=== PATIENT | female | born 1950 | race Caucasian/White ===

== ENCOUNTER 2017-01-01 12:13 | Inpatient (IN) | payer MEDICARE, OTHER ==
--- NOTE | ~2017-01-01 | DS ---
Discharge Summary [facility] [address] [place]. [address] NAME: GEOFFREY KIM : 50 STATUS : DIS IN PAT#: [id number] AGE: 66 ADM/REG DATE : 01/01/17 MR#: [id number] REPORT SERV DATE: 01/04/17 DICTATED BY: BLAKE MOORE DATE: 01/04/17 REPORT STATUS : Draft TRANSCRIBED BY: MODL DATE: 01/04/17 ADMISSION DATE: 01/01/2017 DISCHARGE DATE: 01/04/2017 DISPOSITION: Discharged to home with home health nurse, namely Vivek, three times a week for handling TPN and also for handling J-tube and changing dressings in the J-tube area. CONDITION ON DISCHARGE: Stable. CONSULTS: Consults obtained during hospitalization include Neurology consult. DIAGNOSES ON DISCHARGE: Right-sided weakness secondary to cerebrovascular accident, status post tPA - the patient's weakness completely resolved once she received tPA. The patient has been watched in the ICU for 24 hours post tPA and has been doing great. The patient now has no residual weakness on the right side after she received tPA. Other diagnoses that are chronic include the followin. Chronic moderate malnutrition from dysphagia and gastroparesis. 2. Dysphagia from several reasons:. a. Scleroderma causing esophageal web, eosinophilic esophagitis, history of oral cancer that has been treated. All these have contributed to her dysphagia. 3. The patient has a J-tube placed chronically, which she uses also for supplemental feeding along with her TPN. 4. Chronic moderate malnutrition as mentioned above. 5. Hypertension. 6. Recent cerebrovascular accident, which left her with no residual deficits because of the tPA as mentioned above. Other diagnoses that are stable include: 1. Hypothyroidism, which is stable. 2. Several dilatations of the esophagus and the patient states that she has had this done several times definitely at least 14 times. 3. History of aspiration pneumonia at least five times in the last two years according to the patient and her . 4. Chronic anemia of chronic disease for which she receives frequent Neupogen shots by Dr. Weller. 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 Initially, when the patient came in (please see H and P for much more detailed H and P). Anyway, she came in for right-sided weakness and some confusion and speech disturbance. She was started on tPA immediately for CVA and the patient underwent 24-hour observation in the unit. The patient did really well and subsequently was transferred to the regular floor. The patient has been doing well here, and after being stabilized and given supportive and symptomatic care for the last few days, she is being discharged home Discharge Summary [place] [id number] [facility] [place]. [address] NAME: GEOFFREY KIM : 50 STATUS : DIS IN PAT#: [id number] AGE: 66 ADM/REG DATE : 01/01/17 MR#: [id number] REPORT SERV DATE: 01/04/17 DICTATED BY: BLAKE MOORE DATE: 01/04/17 REPORT STATUS : Draft TRANSCRIBED BY: LISA DATE: 01/04/17 with home health as before. The patient is ambulatory now, but she requires minimal assistance. There are no deficits at this time. On the day of discharge, I have the following medications for her. The patient will be going home on: 1. Aspirin 81 mg via J-tube once a day. 2. Lipitor 40 mg via J-tube once a day. 3. She will continue her erythromycin or Laron-Tab 250 mg via J-tube once a day. 4. Phenergan 25 mg via PEG at bedtime. 5. Vitamin B12. 6. Pulmicort Respules. 7. Zofran 8 mg via PEG four times a day p.r.n. 8. Amlodipine 5 mg once a day via PEG tube. 9. Neurontin 300 mg via PEG tube at bedtime. 10.Aranesp 200 mcg IV every two weeks per Dr. Weller. The patient has been advised to follow up with her PCP, Dr. Elvia Mendoza, within the next week or two and keep her appointment with GI as scheduled and also with Neurology as scheduled. I do have the following labs on her upon discharge. The most recent electrolyte profile which is on 01/04/2017 shows sodium 138, potassium 4.3, BUN 29, creatinine 1.1, magnesium is 2.2, and phosphorus is 3.6. Her most recent CBC that was done on 01/01/2017 shows WBC count of 2.9, hemoglobin 9.7, hematocrit 29.7, and platelet count of 152. The patient has had the following radiological exams: A CT scan of the brain per stroke protocol showed a negative noncontrast CT upon admission. The patient then had a CTA of the head and neck that showed essentially negative CT angiogram also. The patient then also had an MRI of the brain without contrast that showed manganese deposition in both the basal ganglia. This is probably secondary to manganese supplement, which she is getting in her tPA. Her lipid profile showed total cholesterol of 152, HDL of 73, and LDL of 63 which is why the patient is being started on a lower dose of Lipitor 40 mg once a day via the PEG tube right now. Troponin I was negative. Cardiac enzymes were negative. TSH was 4.5 and free T4 0.9. Her hemoglobin A1c came back at 4.5, reflecting that the patient does not have any diabetes at this time. Hence, the patient is being sent home with home health in stable condition. I have spent about 40 minutes in coordinating discharge care of this patient including face- to-face encounter. RRA/MODL Discharge Summary [address] [address] NAME: GEOFFREY KIM : 50 STATUS : DIS IN PAT#: [id number] AGE: 66 ADM/REG DATE : 01/01/17 MR#: [id number] REPORT SERV DATE: 01/04/17 DICTATED BY: BLAKE MOORE DATE: 01/04/17 REPORT STATUS : Draft TRANSCRIBED BY: LISA DATE: 01/04/17 Blake Moore M.D. / [id number] CC: Puja Ruiz M.D.
--- NOTE | ~2017-01-01 | EHP ---
ER History and Physical [address] [address] NAME: GEOFFREY KIM : 50 STATUS : DIS IN PAT#: [id number] AGE: 66 ADM/REG DATE : 01/01/17 MR#: [id number] REPORT SERV DATE: 01/10/17 DICTATED BY: JAYANT HERRERA DATE: 01/10/17 REPORT STATUS : Draft TRANSCRIBED BY: MODL DATE: 01/10/17 CHIEF COMPLAINT: Stroke-like symptoms. HISTORY OF PRESENT ILLNESS: The patient is a 66-year-old white female with a history of throat cancer presenting with acute onset of stroke-like symptoms, was last normal one hour prior. Patient was sent back to the emergency room and I saw the patient immediately on arrival and realized the patient did have an acute onset of CVA. Stroke alert was called. Dr. Curtis called and we discussed this case. The patient was sent to the CT scan, which showed normal scan and tPA was done by Dr. Curtis down here in the ER. Within 30-45 minutes the patient had improvement of symptoms. Plans were made for ICU admission and patient's clinical situation gradually improved while she was in the ER. Please see paper chart for history and physical details. UZMA/LISA Jayant Herrera DO / [id number] CC: Puja Ruiz M.D.
--- NOTE | ~2017-01-01 | HP ---
History And Physical [place] [address] [id number] [facility] [place]. [address] NAME: GEOFFREY KIM : 50 STATUS : REG ER PAT#: [id number] AGE: 66 ADM/REG DATE : 01/01/17 MR#: [id number] REPORT SERV DATE: 01/01/17 DICTATED BY: ALONSO CASTELLANOS DATE: 01/01/17 REPORT STATUS : Draft TRANSCRIBED BY: MODL DATE: 01/01/17 DATE OF ADMISSION: 01/01/2017 HISTORY OF PRESENT ILLNESS: This is a 66-year-old patient Neurology, Dr. White after the patient presented earlier today with right facial weakness and right upper arm weakness and was thought to be a suitable candidate for tPA for CVA. The patient has received the tPA and currently is in the ER waiting room placement and is doing well. She is alert and awake, in no distress. So, we are asked to admit her to the intensive care unit for overnight observation as per protocol. The patient has had no syncope, shortness of breath, productive cough, or fever. She has had no history of seizures or previous strokes. It is also reported that she had difficulty seeing out of her right eye, which then went on to progress to numbness of her right face, all of the symptoms are now resolved. ALLERGIES: MORPHINE, CODEINE, DILAUDID, AND LEVOFLOXACIN. HOME MEDICATIONS: Include; Norvasc 5 mg p.o. daily, Pulmicort Respules at bedtime, cyanocobalamin 1000 mcg IM q.30 days, Aranesp 200 mcg IV q.14 days, erythromycin 250 mg via the PEG daily, gabapentin 300 mg at bedtime, Zofran 8 mg via the PEG 4 times a day p.r.n., and promethazine 25 mg at bedtime. PAST MEDICAL HISTORY: Significant for: 1. History of oral cancer, squamous cell carcinoma of the tongue, diagnosed in 2007, followed by Dr. Shane Charles and Dr. Mich Weller, considered in remission. The patient is status post 14 rounds of chemotherapy and 35 radiation treatments. 2. Hypertension. 3. Hypothyroidism. 4. Scleroderma. 5. Esophageal dilatation followed by Dr. Araujo. 6. Eosinophilic esophagitis. 7. Migraine headaches. 8. Urinary tract infection. 9. Gastroesophageal reflux disorder with severe dysphagia and aspiration. 10.Aspiration pneumonia. 11.Gastroparesis. 12.Peptic ulcer disease. 13.Anemia with frequent Epogen shots followed by Dr. Weller. 14.Colonic polyps. PAST SURGICAL HISTORY: Significant for: 1. Hysterectomy. 2. Cholecystectomy. 3. Appendectomy. 4. She had a PEG tube and that has been converted to a GJ tube. 5. Abdominoplasty. 6. Thoracic outlet syndrome with 1st rib resection. History And Physical [address] [place]. [address] NAME: GEOFFREY KIM : 50 STATUS : REG ER PAT#: [id number] AGE: 66 ADM/REG DATE : 01/01/17 MR#: [id number] REPORT SERV DATE: 01/01/17 DICTATED BY: ALONSO CASTELLANOS DATE: 01/01/17 REPORT STATUS : Draft TRANSCRIBED BY: LISA DATE: 01/01/17 7. Previous Port-A-Cath placement. 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 She has one son. She has no history of smoking or alcohol abuse. FAMILY HISTORY: Significant for lung cancer and heart disease and there are several family members with CVA. REVIEW OF SYSTEMS: The patient has complaints of constant nausea, often times associated with diarrhea, mostly related to her difficulty with gastroparesis and dysphagia. She denies any chest pain. Otherwise, the 10-point review of systems was done and is as per history of present illness. PHYSICAL EXAMINATION: GENERAL: The patient is alert and awake. She is in no distress. VITAL SIGNS: Her blood pressure is 165/73 and heart rate is 94. She is on room air, saturating greater than 96%. Respiratory rate is about 12-14 breaths per minute. SKIN: Pale, but warm and dry. HEENT: The head is atraumatic and normocephalic. Pupils are equal, but sluggish. Sclerae are anicteric. Conjunctivae are pale. Nasal mucosa within normal limits. Oral mucosa is moist. Tongue is deviated slightly to the right. NECK: Supple without JVD, lymphadenopathy, or thyromegaly. appears to have a defect secondary to first rib resection on the right. RESPIRATORY: Lungs are diminished at the bases, but no wheezing is heard. CARDIAC: Reveals a regular rate and rhythm with a soft 2/6 systolic murmur heard at the left sternal border. BREASTS: Symmetrical without masses. ABDOMEN: Has a PEG tube in place that is not infected PEG tube that has been transitioned to a GJ tube. There is bilious drainage in the tubing noted. The abdomen is flat and nondistended. Bowel sounds are present. There is no pain to palpation. No organosplenomegaly is appreciated. There is a PICC line in her right arm and a peripheral IV in the left arm. The patient does not have a Conde. Pulses are palpable and symmetrical. The patient has symmetrical pulses throughout. NEUROLOGIC: Cranial nerves II through XII are grossly intact. She does have decreased range of motion in the right arm; however, she does have baseline weakness in that arm as well. She has no significant facial droop. Her speech is within normal limits. Otherwise, she has good motor strength in the left arm and both lower extremities. LABORATORY DATA: CTA of the neck and brain shows grossly normal perfusion. Intracranial CTA is negative. Brachiocephalic CTA, mild atherosclerotic features; however, carotid vertebral and subclavian vessels shows no significant stenosis. Chest x-ray is clear with a right PICC line in place. Stroke protocol, CT of the head is negative, noncontrasted. Sodium is 132, potassium 3.8, chloride 94, BUN 29, creatinine 1.0, and glucose is 114. LFTs are within normal limits with the exception of minimal elevation of the alkaline phosphatase to 231 and AST of 45. Troponin is less than 0.02. White cell count is 2.9, hemoglobin 9.7, hematocrit 29, and platelet count 152,000. PTT and PT/INR within normal limits. ASSESSMENT AND PLAN: This is a 66-year-old patient with previous history of oral cancer, History And Physical [address] [address] NAME: GEOFFREY KIM : 50 STATUS : REG ER PAT#: [id number] AGE: 66 ADM/REG DATE : 01/01/17 MR#: [id number] REPORT SERV DATE: 01/01/17 DICTATED BY: ALONSO CASTELLANOS DATE: 01/01/17 REPORT STATUS : Draft TRANSCRIBED BY: MODWalt DATE: 01/01/17 squamous cell carcinoma, status post XRT and chemotherapy. Long-term problems with recurrent aspiration, requiring PEG tube placement and an eventual GJ tube placement with severe malnutrition, requiring TPN and periodically trickle feeds. She is followed by Dr. Araujo for this. We will continue her TPN as night as she does at home. She is now status post tPA for CVA and will undergo the 24-hour observation in the CCU. Blood pressure and heart rate will be carefully monitored. Echocardiogram is pending. Neurology will be following. The patient currently is in stable condition and continues to improve. PT and OT evaluation have been ordered. /LISA Alonso Castellanos M.D. / [id number]
--- NOTE | ~2017-01-01 | CN ---
Consultation Report [facility] [address] [place]. [address] NAME: GEOFFREY KIM : 50 STATUS : REG ER PAT#: [id number] AGE: 66 ADM/REG DATE : 01/01/17 MR#: [id number] REPORT SERV DATE: 01/01/17 DICTATED BY: DATE: REPORT STATUS : Draft TRANSCRIBED BY: MODL DATE: 01/01/17 NEUROLOGY CONSULTATION DATE OF CONSULTATION: 01/01/2017 REASON FOR CONSULT: Possible acute stroke. HISTORY OF PRESENT ILLNESS: This is a 66-year-old female who presented to [facility] secondary to acute onset of right hemiparesis with the patient reports the symptoms started roughly at 1130 hours. The patient reports to feel a squiggly line across her vision field with the patient to have difficulty seeing out of her right eye and subsequently was noted to have numbness in her right face with the patient also developed right arm weakness and numbness. The patient reports the symptom has been stable since the onset without significant improvement or change. The patient denies similar symptoms in the past and denies previous history of headache. The patient denies any lower extremity involvement, denies any dysarthria. At time of evaluation, the patient does have a history of tongue- based oral cancer with the patient noted to have no recent chemotherapy or radiation therapy. The patient does receive TPN through IV secondary to gastroparesis. The patient denies any recent illness, fever, chills, nausea, vomiting, chest pain, shortness of breath, and does not take any blood thinners at home. The patient currently reports stable symptom. REVIEW OF SYSTEMS: Negative except for those mentioned in the HPI with the patient notedto have past medical history significant for oral cancer with history of radiation, as well as chemotherapy in 2007, history of hypertension with labile blood pressure, hypothyroidism, scotoma, esophageal dilation in the past with the patient noted to have eosinophilic esophagitis, UTI, previous history of migraine headache, gastroesophageal reflux disease, aspiration pneumonia, with the patient currently not taking anything by mouth. The patient does have gastroparesis with the patient noted to have history of PEG tube, but has not currently used secondary to the patient reports gastroparesis with the patient noted to have intolerance to PEG tube feeding and is currently receiving TPN through PICC line. ALLERGIES: THE PATIENT WAS NOTED TO HAVE ALLERGY TO MORPHINE, CODEINE, DILAUDID, AND LEVAQUIN. SOCIAL HISTORY: Denies current tobacco usage, denies alcohol usage, and denies illicit drug usage. FAMILY HISTORY: Significant for lung cancer and heart disease, as well as stroke. The patient denies taking any blood thinners as home medication, again with the review of systems being negative except for those mentioned in the HPI. PHYSICAL EXAMINATION: VITAL SIGNS: The patient's current vital signs demonstrates T-max of 98.4, heart rate of Consultation Report [place] [id number] [place]. [address] NAME: GEOFFREY KIM : 50 STATUS : REG ER PAT#: [id number] AGE: 66 ADM/REG DATE : 01/01/17 MR#: [id number] REPORT SERV DATE: 01/01/17 DICTATED BY: DATE: REPORT STATUS : Draft TRANSCRIBED BY: MODL DATE: 01/01/17 87, respiration of 14. The patient was noted to have blood pressure initially in the systolic blood pressure of 200, subsequently improved to 181 prior to tPA infusion. The patient was given 5 mg of labetalol IV x1 prior to tPA infusion. GENERAL: The patient is well developed, well nourished, in no acute distress. CARDIOVASCULAR: Regular rate and rhythm. No carotid bruits were otherwise auscultated. PULMONARY: Clear to auscultation bilaterally. NEUROLOGICAL: Generally, the patient is alert and oriented to person, place, year, and month and follows simple and two-step commands. Mild dysarthria was noted. No aphasia was seen. Cranial nerves 2 through 12. Pupils equal, round, and reactive to light. Extraocular eye movement was noted to be intact with intact blink to threat response bilaterally. Reports decreased sensation in the right face with decreased sensation in the right arm. The patient was noted to have mild decreased nasolabial fold on the right. Otherwise, was noted to have midline tongue. Normal hearing. The patient demonstrated 5/5 left upper and bilateral lower extremity strength with the patient noted to have 2/5 right upper extremity strength and normal muscle, bulk, and tone with the patient noted to have normal [id number] examination in the left upper extremity. Deep tendon reflex was 1+ throughout. Gait was not evaluated secondary to acute onset of symptoms. LABORATORY STUDY: Currently pending. CT scan of her brain without contrast demonstrated no acute process with CTA demonstrated no significant proximal vessel thrombosis, although official report is currently pending. IMPRESSION: 1. Right hemiparesis. Symptoms onset at 1130 hours. NIH stroke scale currently is 6 with the symptom unchanged. The patient was given 5 mg of labetalol prior to tPA infusion with the tPA infused at 1242 hours. We will admit the patient to Intensive Care Unit for monitoring and perform stroke workup including MRI of her brain concern for possible stroke versus complex migraine. RECOMMENDATIONS: 1. MRI of the brain without contrast. 2. We will admit the patient to the ICU. 3. PT/OT, and Speech Therapy. 4. Echocardiogram, which is pending. 5. Fasting lipid panel and hemoglobin A1c. 6. Atorvastatin 80 mg p.o. at bedtime. 7. Nicardipine drip as needed for blood pressure. [facility]/LISA Guilherme White MD Consultation Report [address] [address] NAME: GEOFFREY KIM : 50 STATUS : REG ER PAT#: [id number] AGE: 66 ADM/REG DATE : 01/01/17 MR#: [id number] REPORT SERV DATE: 01/01/17 DICTATED BY: DATE: REPORT STATUS : Draft TRANSCRIBED BY: MODL DATE: 01/01/17 / [id number]
[~2017-01-01 12:13] MED LIST: ACCUNEB INH; ADRENAL CORTEX; ALEVE220 MG PEG; ARMOUR THYRO60 MG PO; ATIVAN; ATV1 PO; AUG875 PEG; AUG875 PO; AUGMENTIN 250 MG/5 ML PEG; B121000P IM; CARD30 PEG; CARD30 PO; CATPATCH1 TOP; CELEXA10 PO; EPOGEN IV/SC; ESTER-C500 MG PO; KDUR10 PO; LEVAQUIN750 MG PO; LORTAB 5 PO; MAGOX4 PO; MIRALAXPKT PO; MVIUDL PEG; NEUR300 PEG; NEUR300 PO; NORV5 PEG; NXL3 PO; NYS500UDL PO; PHENERGAN 2525 MG/ML PO; PR12.5 PEG; PR12.5 PO; PR25 PEG; PR25 PO; PREV15 PO; PREV30 PEG; PREV30 PO; PREV30 SL; PRILOSEC40 MG PO; PROTONIX PO; PROVENTSOL INH; REG PO; REG5 PEG; REGL PEG; T PEG; T PO; VICODINTAB PO; VITC500 PO; VITD PO; ZOFRAN4 PEG; ZOFRAN4 PO; ZOFRAN8 PEG; ZOFRAN8 PO; [UNRECOGNIZED DRUG - CODE]; [UNRECOGNIZED DRUG - CODE] PO
[2017-01-01] MEDS ORDERED: ZOFRAN8 PEG (12:58)
[2017-01-01] MEDS ORDERED: PR25 PEG (12:58)
[2017-01-01] MEDS ORDERED: NORV5 PO (12:58)
[2017-01-01 12:59] LABS: BASOPHILS 0.3 %; BASOPHILS ABSOLUTE 0.01 10/3/uL (0.0-0.16); EOSINOPHILS 2.4 %; EOSINOPHILS ABSOLUTE 0.07 10/3/uL (0.0-0.53); ER CBC TAT 0 Hrs 05 Mins; HEMATOCRIT 29.7 % (36.0-48.0); HEMOGLOBIN 9.7 g/dL (12.0-16.0); IMMATURE GRANULOCYTES 0.3 %; IMMATURE GRANULOCYTES ABSOLUTE 0.01 10/3/uL (0.0-0.11); LYMPHOCYTES 43.1 %; LYMPHOCYTES ABSOLUTE 1.24 10/3/uL (0.67-4.30); MEAN CORPUS HGB CONC 32.7 g/dL (32.0-36.0); MEAN CORPUSCULAR HEMOGLOB 29.7 pg (26.0-34.0); MEAN PLATELET VOLUME 9.1 fL (9.2-13.0); MONOCYTES 11.1 %; MONOCYTES ABSOLUTE 0.32 10/3/uL (0.21-1.20); NEUTROPHILS 42.8 %; NEUTROPHILS ABSOLUTE 1.23 10/3/uL (2.02-8.40); RBC DISTRIBUTION WIDTH 15.4 % (12.0-16.0); RED CELL COUNT 3.27 10/6/uL (4.0-5.6); WHITE BLOOD CELLS 2.9 10/3/uL (4.5-10.5)
[2017-01-01] MEDS ORDERED: B121000P IM (12:59)
[2017-01-01] MEDS ORDERED: NEUR300 PEG (12:59)
[2017-01-01] MEDS ORDERED: ARANESP200 IV (13:03)
[2017-01-01 13:04] LABS: MANUAL DIFF NO %; MEAN CORPUSCULAR VOLUME 90.8 fL (80-100); PLATELET COUNT 152 10/3/uL (150-400)
[2017-01-01] MEDS ORDERED: ERY-TAB250 MG PEG (13:05)
[2017-01-01] MEDS ORDERED: PULRESP.5 INH (13:06)
[2017-01-01 13:09] LABS: INTERNATIONAL NORMAL RATI 1.2 UNITS (-); PROTIME (NOT ORD) 14.7 SEC (12.0-14.5)
[2017-01-01 13:10] LABS: PARTIAL THROMBO TIME 34.7 SEC (22.5-37.2)
[2017-01-01 13:18] LABS: A/G RATIO 0.9 (0.7-1.9); ALBUMIN 3.4 G/DL (3.5-5.0); CALCIUM, SERUM 8.1 MG/DL (8.5-10.4); CHLORIDE, SERUM 94 MMOL/L (96-112); CO2 (CARBON DIOXIDE) 25 MMOL/L (24-34); GFR AFRICAN AMERICAN 68 ML/MIN (>=60); GFR NON AFRICAN AMERICAN 59 ML/MIN (>=60); GLOBULIN 3.6 G/DL (2.5-4.1); POTASSIUM, SERUM 3.8 MMOL/L (3.5-5.3); SGOT(AST) 45 U/L (5-40); SGPT(ALT) 44 U/L (5-65); SODIUM, SERUM 132 MMOL/L (135-148); TOTAL BILIRUBIN 0.5 MG/DL (0-1.2); TROPONIN I <0.02 NG/ML (<0.05)
[2017-01-01 13:19] LABS: ALKALINE PHOSPHATASE 231 U/L (45-117); BUN (BLOOD UREA NITROGEN) 29 MG/DL (6-23); GLUCOSE, SERUM 114 MG/DL (60-99)
[2017-01-01 20:28] LABS: ASCORBIC ACID (UR NOT ORDER) NEG (NEG); BILIRUBIN, URINE NEGATIVE (NEG); KETONE, URINE NEGATIVE (NEG); LEUKOCYTE ESTERASE(NOT OR NEG (NEG); WBC (NOT ORDERED) (RFLEX) < 1 (0-5)
[2017-01-01 21:00] LABS: CHOL/HDL RATIO(NOT ORDER) 2.1 (0-5); CHOLESTEROL 152 MG/DL (< 200); CK-MB 1.4 NG/ML; CPK 139 U/L (0-200); FREE T4 0.91 NG/DL (0.76-1.46); HDL CHOLESTEROL 73 MG/DL (> 49); LDL CHOLESTEROL 63 MG/DL (< 130); NON-HDL CHOLESTEROL 79 MG/DL (< 160); TRIGLYCERIDE 81 MG/DL (< 150); TROPONIN I <0.02 NG/ML (<0.05)
[2017-01-02 05:22] LABS: TROPONIN I <0.02 NG/ML (<0.05)
[2017-01-02 05:23] LABS: CK-MB 1.4 NG/ML; CPK 97 U/L (0-200)
[2017-01-02 06:36] LABS: BUN (BLOOD UREA NITROGEN) 29 MG/DL (6-23); CALCIUM, SERUM 8.7 MG/DL (8.5-10.4); CHLORIDE, SERUM 100 MMOL/L (96-112); CO2 (CARBON DIOXIDE) 27 MMOL/L (24-34); CREATININE 1.14 MG/DL (0.55-1.02); GFR AFRICAN AMERICAN 58 ML/MIN (>=60); GFR NON AFRICAN AMERICAN 50 ML/MIN (>=60); PHOSPHORUS, SERUM 2.5 MG/DL (2.5-4.5); POTASSIUM, SERUM 4.2 MMOL/L (3.5-5.3); SODIUM, SERUM 137 MMOL/L (135-148)
[2017-01-02 06:38] LABS: GLUCOSE, SERUM 138 MG/DL (60-99)
[2017-01-02 14:40] LABS: CK-MB 1.3 NG/ML; CPK 97 U/L (0-200); TROPONIN I <0.02 NG/ML (<0.05)
[2017-01-03 05:19] LABS: BASOPHILS 0.4 %; BASOPHILS ABSOLUTE 0.01 10/3/uL (0.0-0.16); EOSINOPHILS 6.4 %; EOSINOPHILS ABSOLUTE 0.16 10/3/uL (0.0-0.53); HEMATOCRIT 29.3 % (36.0-48.0); HEMOGLOBIN 9.7 g/dL (12.0-16.0); LYMPHOCYTES 33.5 %; LYMPHOCYTES ABSOLUTE 0.84 10/3/uL (0.67-4.30); MEAN CORPUS HGB CONC 33.1 g/dL (32.0-36.0); MEAN CORPUSCULAR HEMOGLOB 30.1 pg (26.0-34.0); MEAN PLATELET VOLUME 9.4 fL (9.2-13.0); MONOCYTES 13.5 %; MONOCYTES ABSOLUTE 0.34 10/3/uL (0.21-1.20); NEUTROPHILS 46.2 %; NEUTROPHILS ABSOLUTE 1.16 10/3/uL (2.02-8.40); PLATELET COUNT 166 10/3/uL (150-400); RBC DISTRIBUTION WIDTH 15.5 % (12.0-16.0); RED CELL COUNT 3.22 10/6/uL (4.0-5.6); WHITE BLOOD CELLS 2.5 10/3/uL (4.5-10.5)
[2017-01-03 05:21] LABS: MANUAL DIFF NO %
[2017-01-03 05:38] LABS: A/G RATIO 0.8 (0.7-1.9); ALBUMIN 2.9 G/DL (3.5-5.0); BUN (BLOOD UREA NITROGEN) 28 MG/DL (6-23); CALCIUM, SERUM 8.6 MG/DL (8.5-10.4); CHLORIDE, SERUM 101 MMOL/L (96-112); CO2 (CARBON DIOXIDE) 30 MMOL/L (24-34); CREATININE 1.16 MG/DL (0.55-1.02); GFR AFRICAN AMERICAN 57 ML/MIN (>=60); GFR NON AFRICAN AMERICAN 49 ML/MIN (>=60); GLOBULIN 3.5 G/DL (2.5-4.1); GLUCOSE, SERUM 120 MG/DL (60-99); PHOSPHORUS, SERUM 3.1 MG/DL (2.5-4.5); POTASSIUM, SERUM 3.9 MMOL/L (3.5-5.3); PREALBUMIN 17.4 MG/DL (17.0-43.0); SGOT(AST) 37 U/L (5-40); SGPT(ALT) 35 U/L (5-65); SODIUM, SERUM 140 MMOL/L (135-148); TOTAL BILIRUBIN 0.4 MG/DL (0-1.2); TOTAL PROTEIN 6.4 G/DL (6.0-8.5)
[2017-01-03 05:41] LABS: ALKALINE PHOSPHATASE 200 U/L (45-117)
[2017-01-03 16:34] LABS: GAMMA GT 235 U/L (5-85)
[2017-01-04 06:11] LABS: BUN (BLOOD UREA NITROGEN) 29 MG/DL (6-23); CHLORIDE, SERUM 101 MMOL/L (96-112); CO2 (CARBON DIOXIDE) 29 MMOL/L (24-34); GFR AFRICAN AMERICAN 61 ML/MIN (>=60); GFR NON AFRICAN AMERICAN 52 ML/MIN (>=60); GLUCOSE, SERUM 130 MG/DL (60-99); PHOSPHORUS, SERUM 3.6 MG/DL (2.5-4.5); POTASSIUM, SERUM 4.3 MMOL/L (3.5-5.3); SODIUM, SERUM 138 MMOL/L (135-148)
[2017-01-04] MEDS ORDERED: ASAB J-TUBE (12:51)
[2017-01-04] MEDS ORDERED: LIPITOR40 J-TUBE (12:52)
[2017-01-09 09:18] LABS: CREATININE 1.1 MG/DL (0.55-1.02)
[2017-04-04] MEDS ORDERED: ZITH250 PO (13:40)
[2017-04-04] MEDS ORDERED: LEVOTHYROXIN25 MCG PO (13:41)
[2017-04-04] MEDS ORDERED: ATRONASAL3 NAS (13:41)
[2017-04-04] MEDS ORDERED: PERFOROM INH (13:43)
[2017-04-04] MEDS ORDERED: NEUR300 PO (13:53)
[2017-04-04] MEDS ORDERED: ZOFRAN8 PO (13:53)
[2017-04-04] MEDS ORDERED: [UNRECOGNIZED DRUG - OTHER] PO (13:54)
[2017-05-24] MEDS ORDERED: MEVACOR10 MG PO (14:28)
== END 2017-01-04 13:18 | disposition home health service (06) | DRG 61 ==
LOC: ER 12:13 → CCU 17:57 → 1SO 01-02 19:28
PROVIDERS: Hospitalist; Internal Medicine Pulmonary Disease
PROC: 3E04317 Introduction of Other Thrombolytic into Central Vein, Percutaneous Approach (ICD-10-PCS; principal; 2017-01-01)
PROC: 3E0G76Z Introduction of Nutritional Substance into Upper GI, Via Natural or Artificial Opening (ICD-10-PCS; 2017-01-02)
DX: I63.9 Cerebral infarction, unspecified (principal); Q39.4 Esophageal web; E43 Unspecified severe protein-calorie malnutrition; G81.91 Hemiplegia, unspecified affecting right dominant side; Z68.1 Body mass index [BMI] 19.9 or less, adult; M34.9 Systemic sclerosis, unspecified; K31.84 Gastroparesis; R13.10 Dysphagia, unspecified; E03.9 Hypothyroidism, unspecified; D63.8 Anemia in other chronic diseases classified elsewhere; I10 Essential (primary) hypertension; K20.0 Eosinophilic esophagitis; K21.9 Gastro-esophageal reflux disease without esophagitis; R29.706 NIHSS score 6; Z93.1 Gastrostomy status; Z79.82 Long term (current) use of aspirin; Z79.899 Other long term (current) drug therapy; Z85.810 Personal history of malignant neoplasm of tongue; Z87.11 Personal history of peptic ulcer disease; Z87.440 Personal history of urinary (tract) infections; Z87.01 Personal history of pneumonia (recurrent); Z86.010 Personal history of colon polyps; Z88.5 Allergy status to narcotic agent; Z88.1 Allergy status to other antibiotic agents
CPT/HCPCS: 36415; 70450; 70496; 70498; 70551; 71010; 80048; 80053; 80061; 81001; 82330; 82550; 82553; 82962; 82977; 83036; 83735; 84100; 84134; 84439; 84443; 84484; 85025; 85610; 85730; 86850; 86900; 86901; 87641; 93005; 93306; 96374; 96375; 96523; 97161-GP; 97166-GO; 99285; A9270-GY; C9113; G0463; G8978-CH-GP; G8979-CH-GP; G8980-CH-GP; G8987-CK-GO; G8988-CJ-GO; J2997; Q9967

== ENCOUNTER 2017-01-20 13:23 | Emergency (ER) | payer MEDICARE, OTHER ==
[~2017-01-20 13:23] MED LIST changes: +ARANESP200 IV; +ASAB J-TUBE; +ERY-TAB250 MG PEG; +LIPITOR40 J-TUBE; +NORV5 PO; +PULRESP.5 INH
[2017-01-20 14:10] LABS: BASOPHILS 0 %; EOSINOPHILS 1.1 %; EOSINOPHILS ABSOLUTE 0.05 10/3/uL (0.0-0.53); HEMATOCRIT 31.9 % (36.0-48.0); HEMOGLOBIN 10.7 g/dL (12.0-16.0); LYMPHOCYTES 15.1 %; LYMPHOCYTES ABSOLUTE 0.66 10/3/uL (0.67-4.30); MANUAL DIFF NO %; MEAN CORPUS HGB CONC 33.5 g/dL (32.0-36.0); MEAN CORPUSCULAR HEMOGLOB 29.4 pg (26.0-34.0); MEAN CORPUSCULAR VOLUME 87.6 fL (80-100); MEAN PLATELET VOLUME 9.1 fL (9.2-13.0); MONOCYTES 5.3 %; MONOCYTES ABSOLUTE 0.23 10/3/uL (0.21-1.20); NEUTROPHILS 78.5 %; NEUTROPHILS ABSOLUTE 3.44 10/3/uL (2.02-8.40); PLATELET COUNT 154 10/3/uL (150-400); RBC DISTRIBUTION WIDTH 16.2 % (12.0-16.0); RED CELL COUNT 3.64 10/6/uL (4.0-5.6); WHITE BLOOD CELLS 4.4 10/3/uL (4.5-10.5)
[2017-01-20 14:21] LABS: ASCORBIC ACID (UR NOT ORDER) NEG (NEG); BILIRUBIN, URINE NEGATIVE (NEG); ER URINALYSIS TAT 0 Hrs 08 Mins; KETONE, URINE NEGATIVE (NEG); LEUKOCYTE ESTERASE(NOT OR NEG (NEG); NITRITE (URINE) NEG (NEG); WBC (NOT ORDERED) (RFLEX) 1 (0-5)
[2017-01-20 14:27] LABS: CALCIUM, SERUM 8.8 MG/DL (8.5-10.4); CHLORIDE, SERUM 96 MMOL/L (96-112); CO2 (CARBON DIOXIDE) 30 MMOL/L (24-34); CREATININE 1.12 MG/DL (0.55-1.02); GFR AFRICAN AMERICAN 59 ML/MIN (>=60); GFR NON AFRICAN AMERICAN 51 ML/MIN (>=60); GLUCOSE, SERUM 125 MG/DL (60-99); POTASSIUM, SERUM 4.1 MMOL/L (3.5-5.3); SGOT(AST) 201 U/L (5-40); SGPT(ALT) 309 U/L (5-65); SODIUM, SERUM 134 MMOL/L (135-148); TOTAL BILIRUBIN 0.4 MG/DL (0-1.2)
[2017-01-20 14:30] LABS: A/G RATIO 0.9 (0.7-1.9); ALBUMIN 3.6 G/DL (3.5-5.0); ALKALINE PHOSPHATASE 614 U/L (45-117); BUN (BLOOD UREA NITROGEN) 38 MG/DL (6-23); GLOBULIN 4.1 G/DL (2.5-4.1); TOTAL PROTEIN 7.7 G/DL (6.0-8.5)
[2017-04-04] MEDS ORDERED: ZITH250 PO (13:40)
[2017-04-04] MEDS ORDERED: LEVOTHYROXIN25 MCG PO (13:41)
[2017-04-04] MEDS ORDERED: ATRONASAL3 NAS (13:41)
[2017-04-04] MEDS ORDERED: PERFOROM INH (13:43)
[2017-04-04] MEDS ORDERED: NEUR300 PO (13:53)
[2017-04-04] MEDS ORDERED: ZOFRAN8 PO (13:53)
[2017-04-04] MEDS ORDERED: [UNRECOGNIZED DRUG - OTHER] PO (13:54)
[2017-05-24] MEDS ORDERED: MEVACOR10 MG PO (14:28)
== END 2017-01-20 17:03 | disposition home or self-care (01) ==
LOC: ER 13:23
PROVIDERS: Emergency Medicine
DX: R10.10 Upper abdominal pain, unspecified (principal); R11.2 Nausea with vomiting, unspecified; I10 Essential (primary) hypertension; K21.9 Gastro-esophageal reflux disease without esophagitis; D64.9 Anemia, unspecified; Z86.73 Personal history of transient ischemic attack (TIA), and cerebral infarction without residual deficits; Z87.01 Personal history of pneumonia (recurrent); Z88.5 Allergy status to narcotic agent; Z88.1 Allergy status to other antibiotic agents; Z79.82 Long term (current) use of aspirin; Z79.899 Other long term (current) drug therapy
CPT/HCPCS: 74176; 80053; 81001; 83690; 85025; 96374; 96375; 99285; A9270-GY; J1885; J2405